=== PATIENT | male | born 1970 | race Two or more races ===

== ENCOUNTER 2019-05-19 17:14 | Emergency (ER) | payer SELFPAY ==
[~2019-05-19] VITALS: Ht 165.1 cm; Wt 68.0 kg
[2019-05-19] MEDS ORDERED: SODIUM CHLORIDE 0.9% 1,000 ML IV ONE (18:08)
[2019-05-19] MEDS ORDERED: LEVETIRACETAM 500MG PREMIX 100 ML IV ONE (18:15)
[2019-05-19 18:23] LABS: BASOPHILS % 0.4 % (0.0-2.0); EOSINOPHILS % 1.8 % (0.0-5.0); HEMOGLOBIN. 14.6 g/dL (14.0-18.0); MEAN CORPUSCULAR HEMOGLOBIN 31.9 pg (28.0-32.0); MEAN CORPUSCULAR VOLUME 94.2 fL (80.0-94.0); MEAN PLATELET VOLUME 9.9 fl (7.4-10.4); MONOCYTES % 7.3 % (2.0-8.0); NEUTROPHILS % 58.5 % (40.0-76.0); PLATELET 142 x1000/uL (130-400); RED BLOOD CELL COUNT 4.56 mill/uL (4.7-6.1); RED CELL DISTRIBUTION WIDTH 13.5 % (11.6-14.6)
[2019-05-19 18:28] LABS: CHLORIDE 108 mEq/L (98-107)
[2019-05-19 18:32] LABS: ETHANOL BLOOD < 10 mg/dL
[2019-05-19 18:36] LABS: CREATINE KINASE 151 IU/L (39-308)
[2019-05-19 18:37] LABS: CARBAMAZEPINE < 0.5 ug/mL (4-12); PHENOBARBITAL < 2.1 ug/mL (15.0-40.0); VALPROIC ACID < 3.0 ug/mL (50-100)
[2019-05-19 18:51] LABS: *AMPHETAMINES SCREEN URINE NEGATIVE (NEGATIVE); *BARBITURATES SCREEN URINE NEGATIVE (NEGATIVE); *BENZODIAZEPINES SCREEN URINE NEGATIVE (NEGATIVE); *COCAINE SCREEN URINE NEGATIVE (NEGATIVE); METHADONE URINE SCREEN NEGATIVE (NEGATIVE); OPIATES URINE SCREEN NEGATIVE (NEGATIVE)
[2019-05-19 18:52] LABS: CANNABINOID URINE SCREEN NEGATIVE (NEGATIVE); PHENCYCLIDINE URINE SCREEN NEGATIVE (NEGATIVE)
[2019-05-19 21:57] VITALS: BP 134/84
== END 2019-05-19 21:57 | disposition home or self-care (01) ==
LOC: EDSEX 17:14 → ER 17:14
DX: R56.9 Unspecified convulsions (principal); E86.0 Dehydration; S09.8XXA Other specified injuries of head, initial encounter; X58.XXXA Exposure to other specified factors, initial encounter; Y93.89 Activity, other specified; Y92.9 Unspecified place or not applicable
CPT/HCPCS: 36415; 70450; 80053; 80156; 80165; 80184; 80185; 80305; 80320; 82550; 82962; 83880; 84443; 84484; 85025; 93005; 96374; 99284; J1953; J7030; G0480

== ENCOUNTER 2019-10-15 09:54 | Emergency (ER) | payer SELFPAY ==
[~2019-10-15] VITALS: Ht 165.1 cm; Wt 68.0 kg
[2019-10-15] MEDS ORDERED: LEVETIRACETAM 1000MG/100ML 100 ML IV ONE (10:30)
[2019-10-15 11:02] VITALS: BP 144/67
[2019-10-15 11:56] LABS: CHLORIDE 107 mEq/L (98-107)
[2019-10-15 12:02] LABS: ETHANOL BLOOD < 10 mg/dL
[2019-10-15 12:03] LABS: BASOPHILS % 0.3 % (0.0-2.0); EOSINOPHILS % 0.2 % (0.0-5.0); HEMATOCRIT. 44.3 % (42.0-52.0); HEMOGLOBIN. 15.1 g/dL (14.0-18.0); LYMPHOCYTES % 8.2 % (20.0-50.0); MEAN CORPUSCULAR HEMOGLOBIN 32.1 pg (28.0-32.0); MEAN CORPUSCULAR VOLUME 94.3 fL (80.0-94.0); MEAN PLATELET VOLUME 10.6 fl (7.4-10.4); MONOCYTES % 4.1 % (2.0-8.0); NEUTROPHILS % 87.2 % (40.0-76.0); PLATELET 151 x1000/uL (130-400); RED CELL DISTRIBUTION WIDTH 12.9 % (11.6-14.6)
[2019-10-15 12:07] LABS: CLARITY URINE CLEAR (CLEAR); COLOR URINE YELLOW (YELLOW); KETONES URINE NEGATIVE (NEGATIVE); LEUKOCYTE ESTERASE URINE NEGATIVE (NEGATIVE); NITRITE URINE NEGATIVE (NEGATIVE); OCCULT BLOOD URINE NEGATIVE (NEGATIVE); PROTEIN URINE NEGATIVE (NEGATIVE); SPECIFIC GRAVITY URINE 1.011 (1.005-1.030); UROBILINOGEN URINE 0.2 E.U./dL (0.2-1.0)
[2019-10-15 12:40] LABS: *AMPHETAMINES SCREEN URINE NEGATIVE (NEGATIVE); *BARBITURATES SCREEN URINE NEGATIVE (NEGATIVE); *BENZODIAZEPINES SCREEN URINE NEGATIVE (NEGATIVE); *COCAINE SCREEN URINE NEGATIVE (NEGATIVE); METHADONE URINE SCREEN NEGATIVE (NEGATIVE); OPIATES URINE SCREEN NEGATIVE (NEGATIVE)
[2019-10-15 12:41] LABS: CANNABINOID URINE SCREEN NEGATIVE (NEGATIVE); PHENCYCLIDINE URINE SCREEN NEGATIVE (NEGATIVE)
== END 2019-10-15 13:03 | disposition home or self-care (01) ==
LOC: ER 10:15
DX: G40.909 Epilepsy, unspecified, not intractable, without status epilepticus (principal); Z86.73 Personal history of transient ischemic attack (TIA), and cerebral infarction without residual deficits
CPT/HCPCS: 36415; 80053; 80305; 80320; 81003; 85025; 96365; 99283; J1953; Z7610; G0480

== ENCOUNTER 2023-04-05 11:03 | Inpatient (IN) | payer MEDICAID ==
[~2023-04-05] VITALS: Ht 167.6 cm; Wt 74.8 kg
[~2023-04-05 11:03] MED LIST: KEPP500 PO; LAM25 PO
[2023-04-05] MEDS ORDERED: LEVETIRACETAM 1000MG PREMIX 100 ML IV ONE ×2 (11:45→16:00)
[2023-04-05] MEDS ORDERED: ACETAMINOPHEN 325MG TABLET PO ONE (11:45)
[2023-04-05 12:57] LABS: HEMATOCRIT. 40.1 % (42.0-52.0); HEMOGLOBIN. 13.8 g/dL (14.0-18.0); MEAN CORPUSCULAR HEMOGLOBIN 34.2 pg (28.0-32.0); MEAN CORPUSCULAR HGB CONC 34.3 g/dL (31.0-37.0); MEAN CORPUSCULAR VOLUME 99.6 fL (80.0-94.0); MEAN PLATELET VOLUME 9.2 fl (7.4-10.4); PLATELET 162 x1000/uL (130-400); RED BLOOD CELL COUNT 4.03 mill/uL (4.7-6.1); RED CELL DISTRIBUTION WIDTH 17.2 % (11.6-14.6); WHITE BLOOD COUNT 22.7 x1000/uL (4.5-11.0)
[2023-04-05 13:00] LABS: DIFFERENTIAL COMMENT 1
[2023-04-05 13:10] LABS: CHLORIDE 101 mEq/L (98-107); INDEX HEMOLYSI 1 (1-3); INDEX ICTERIC 2 (1-4); INDEX LIPEMIC 1 (1-3); POTASSIUM 3.5 mEq/L (3.5-5.1); SODIUM 134 mEq/L (136-145)
[2023-04-05 13:21] LABS: ALANINE AMINOTRANSFERASE 100 IU/L (13-61); ALBUMIN 3.1 g/dL (3.4-5.0); ASPARTATE AMINOTRANSFERASE 51 IU/L (15-37); BILIRUBIN TOTAL 1.4 mg/dL (0.1-1.0); CALCIUM 8.2 mg/dL (8.5-10.1); CARBON DIOXIDE 16 mEq/L (21-32); CREATINE KINASE 94 IU/L (39-308); CREATININE 0.7 mg/dL (0.6-1.3); ETHANOL BLOOD < 10 mg/dL (-10); GLUCOSE 102 mg/dL (70-105); UREA NITROGEN BLOOD 21 mg/dL (7-21)
[2023-04-05 13:29] LABS: ANISOCYTOSIS 1+; PLATELET ESTIMATE NORMAL
[2023-04-05 13:38] LABS: TROPONIN I HIGH SENSITIVITY 258 ng/L (<78)
[2023-04-05] MEDS ORDERED: SODIUM CHLORIDE 0.9% 1000ML BAG (SEPSIS BOLUS) IV ONE (15:00)
[2023-04-05] MEDS ORDERED: PIPERACILLIN/TAZOBACTAM 3.375GM/50ML PREMIX IV ONE (15:00)
[2023-04-05] MEDS ORDERED: PIPERACILLIN/TAZ 3.375G PREMIX 50 ML IV NR (15:00)
[2023-04-05] MEDS ORDERED: VANCOMYCIN 1G PREMIX 200 ML IV NR (15:00)
[2023-04-05] MEDS ORDERED: LORAZEPAM 2MG/ML CPJ IV ONE (15:15)
[2023-04-05 15:45] LABS: LACTIC ACID 12.8 mmol/L (0.4-2.0)
[2023-04-05] MEDS ORDERED: PIPERACILLIN/TAZ 3.375G PREMIX 50 ML IV SCH (16:00)
[2023-04-05] MEDS ORDERED: ONDANSETRON HCL 4MG/2ML INJ IV PRN (16:00)
[2023-04-05] MEDS ORDERED: IPRATROPIUM/ALBUTEROL 0.5-3(2.5)MG/3ML NEB NEB PRN (16:00)
[2023-04-05] MEDS ORDERED: CLONIDINE 0.1MG TABLET PO PRN (16:00)
[2023-04-05] MEDS ORDERED: GUAIFENESIN 200MG/10ML SUGAR FREE UDC PO PRN (16:00)
[2023-04-05] MEDS ORDERED: NITROGLYCERIN 0.4MG TABLET SL SL PRN (16:00)
[2023-04-05] MEDS ORDERED: ACETAMINOPHEN 325MG TABLET PO PRN ×2 (16:00)
[2023-04-05] MEDS ORDERED: SODIUM BICARBONATE 8.4% 1 MEQ/ML 50ML SYR IV ONE (16:00)
[2023-04-05] MEDS ORDERED: DOCUSATE SODIUM 100MG CAPSULE PO PRN (16:00)
[2023-04-05] MEDS ORDERED: MAGNESIUM/ALUMINUM HYDROXIDE/SIMETHICONE 30ML UDC PO PRN (16:00)
[2023-04-05] MEDS ORDERED: SODIUM CHLORIDE 0.9% 1000ML BAG (SEPSIS BOLUS) IV NR (16:30)
[2023-04-05] MEDS ORDERED: DEXAMETHASONE 10 MG/ML VIAL IV ONE (16:30)
[2023-04-05 17:04] LABS: T4 FREE 1.19 ng/dL (0.76-1.46); THYROID STIMULATING HORMONE 0.79 uIU/mL (0.36-3.74)
[2023-04-05 17:05] LABS: CLARITY URINE TURBID (CLEAR); COLOR URINE YELLOW (YELLOW); GLUCOSE URINE NEGATIVE (NEGATIVE); KETONES URINE NEGATIVE (NEGATIVE); LEUKOCYTE ESTERASE URINE NEGATIVE (NEGATIVE); NITRITE URINE NEGATIVE (NEGATIVE); OCCULT BLOOD URINE NEGATIVE (NEGATIVE); PH URINE 7.5 (4.5-8.0); PROTEIN URINE NEGATIVE (NEGATIVE); SPECIFIC GRAVITY URINE 1.012 (1.005-1.030)
[2023-04-05 17:12] LABS: SQUAMOUS EPITHELIAL CELL URINE NONE SEEN /lpf (RARE/1+); WBC URINE 0-2 /hpf (0-2); YEAST URINE NONE SEEN
[2023-04-05 17:24] LABS: *AMPHETAMINES SCREEN URINE NEGATIVE (NEGATIVE); *BARBITURATES SCREEN URINE NEGATIVE (NEGATIVE); *BENZODIAZEPINES SCREEN URINE NEGATIVE (NEGATIVE); *COCAINE SCREEN URINE NEGATIVE (NEGATIVE); CANNABINOID URINE SCREEN NEGATIVE (NEGATIVE); ECSTASY MDMA SCREEN URINE NEGATIVE (NEGATIVE); METHADONE URINE SCREEN NEGATIVE (NEGATIVE); OPIATES URINE SCREEN NEGATIVE (NEGATIVE); PHENCYCLIDINE URINE SCREEN NEGATIVE (NEGATIVE)
[2023-04-05 17:26] LABS: FOLIC ACID (FOLATE) SERUM 19.8 ng/mL (>5.38)
[2023-04-05 17:44] LABS: BACTERIA URINE 1+; RBC URINE 0-2 /hpf (0-2)
[2023-04-05] MEDS: ENOXAPARIN 40MG/0.4ML SYR SUBCUT SCH (17:57)
[2023-04-05] MEDS ORDERED: CEFTRIAXONE 2GM/50ML (ADDEASE) 50 ML IV ONE (18:15)
[2023-04-05] MEDS: ACYCLOVIR INJ 500 MG in DEXT 5% WATER 100 ML IV SCH (18:15)
[2023-04-05] MEDS ORDERED: CEFTRIAXONE 2 G in DEXTROSE 5% WATER 50 ML IV NR (18:30)
[2023-04-05 22:00] VITALS: BP 139/90; PULSE 87; RESP 13; TEMP 97.6
[2023-04-05] MEDS: ATORVASTATIN CALCIUM 40MG TABLET PO SCH (22:00)
[2023-04-05] MEDS: ASCORBIC ACID 500 MG TABLET PO SCH (22:00)
[2023-04-05 22:14] VITALS: BP 139/90; PULSE 86; RESP 16; TEMP 97.6
[2023-04-06] VITALS (11 sets, daily range): BP systolic 95–154; BP diastolic 63–99; PULSE 78–123; RESP 13–25; TEMP 97.2–98.4
[2023-04-06] MEDS: VANCOMYCIN 750MG PREMIX 150 ML IV SCH ×4 (00:09→21:31)
[2023-04-06] MEDS: PIPERACILLIN/TAZOBACTAM 3.375G in DEXT 5% WATER 50ML IV SCH ×4 (00:09→21:31)
[2023-04-06 01:12] LABS: CREATINE KINASE MB FRACTION 6.6 ng/mL (0.5-3.6)
[2023-04-06] MEDS: ACYCLOVIR INJ 500 MG in DEXT 5% WATER 100 ML IV SCH ×2 (02:25→08:30)
[2023-04-06] MEDS ORDERED: DEXA1TAB PO (02:33)
[2023-04-06] MEDS ORDERED: VALA500T55 PO (02:36)
[2023-04-06] MEDS ORDERED: FURO-152 PO (02:36)
[2023-04-06] MEDS ORDERED: LACO200T2 PO (02:36)
[2023-04-06] MEDS ORDERED: OXYB5TAB17 PO (02:36)
[2023-04-06 07:03] LABS: BASOPHILS % 0.1 % (0.0-2.0); DIFFERENTIAL COMMENT 0; HEMATOCRIT. 37.3 % (42.0-52.0); HEMOGLOBIN. 13.1 g/dL (14.0-18.0); LYMPHOCYTES % 8.8 % (20.0-50.0); MEAN CORPUSCULAR HEMOGLOBIN 34.5 pg (28.0-32.0); MEAN CORPUSCULAR HGB CONC 35.1 g/dL (31.0-37.0); MEAN CORPUSCULAR VOLUME 98.3 fL (80.0-94.0); MEAN PLATELET VOLUME 9.5 fl (7.4-10.4); MONOCYTES % 3.1 % (2.0-8.0); PLATELET 144 x1000/uL (130-400); RED BLOOD CELL COUNT 3.79 mill/uL (4.7-6.1); RED CELL DISTRIBUTION WIDTH 17.1 % (11.6-14.6); WHITE BLOOD COUNT 11.3 x1000/uL (4.5-11.0)
[2023-04-06 08:01] LABS: CHLORIDE 106 mEq/L (98-107); INDEX HEMOLYSI 1 (1-3); INDEX ICTERIC 2 (1-4); INDEX LIPEMIC 1 (1-3); POTASSIUM 3.4 mEq/L (3.5-5.1); SODIUM 137 mEq/L (136-145)
[2023-04-06 08:16] LABS: ALANINE AMINOTRANSFERASE 79 IU/L (13-61); ALBUMIN 2.8 g/dL (3.4-5.0); ASPARTATE AMINOTRANSFERASE 40 IU/L (15-37); BILIRUBIN TOTAL 1.4 mg/dL (0.1-1.0); CARBON DIOXIDE 21 mEq/L (21-32); CREATINE KINASE 61 IU/L (39-308); CREATININE 0.4 mg/dL (0.6-1.3); GLUCOSE 86 mg/dL (70-105); PROTEIN TOTAL 5.7 g/dL (6.0-8.3); TRIGLYCERIDE 301 mg/dL (0-150); UREA NITROGEN BLOOD 16 mg/dL (7-21)
[2023-04-06] MEDS ORDERED: PANTOPRAZOLE SODIUM 40 MG/VIAL IV SCH (09:00)
[2023-04-06] MEDS ORDERED: LEVETIRACETAM 500MG PREMIX 100 ML IV SCH (09:00)
[2023-04-06] MEDS: LEVETIRACETAM 500MG PREMIX 100 ML IV SCH ×2 (09:44→20:19)
[2023-04-06] MEDS: ZINC SULFATE 220 MG ( 50 ) CAPSULE PO SCH (09:45)
[2023-04-06] MEDS: ASCORBIC ACID 500 MG TABLET PO SCH ×2 (09:45→20:19)
[2023-04-06 11:00] LABS: *AMPHETAMINES SCREEN URINE NEGATIVE (NEGATIVE); *BARBITURATES SCREEN URINE NEGATIVE (NEGATIVE); *BENZODIAZEPINES SCREEN URINE NEGATIVE (NEGATIVE); *COCAINE SCREEN URINE NEGATIVE (NEGATIVE); CANNABINOID URINE SCREEN NEGATIVE (NEGATIVE); ECSTASY MDMA SCREEN URINE NEGATIVE (NEGATIVE); METHADONE URINE SCREEN NEGATIVE (NEGATIVE); OPIATES URINE SCREEN NEGATIVE (NEGATIVE); PHENCYCLIDINE URINE SCREEN NEGATIVE (NEGATIVE)
[2023-04-06] MEDS: CLOPIDOGREL 75MG TABLET PO SCH (12:31)
[2023-04-06] MEDS ORDERED: ASPIRIN 81MG TABLET PO SCH (12:45)
[2023-04-06] MEDS: ENOXAPARIN 40MG/0.4ML SYR SUBCUT SCH (17:09)
[2023-04-06] MEDS: ATORVASTATIN CALCIUM 40MG TABLET PO SCH (20:19)
[2023-04-06] MEDS: KETOROLAC 15MG/ML VIAL IV PRN (20:55)
[2023-04-07] VITALS (10 sets, daily range): BP systolic 118–147; BP diastolic 76–112; PULSE 99–124; RESP 14–24; TEMP 98–98.5
[2023-04-07] MEDS: VANCOMYCIN 750MG PREMIX 150 ML IV SCH ×2 (05:01→13:57)
[2023-04-07] MEDS: PIPERACILLIN/TAZOBACTAM 3.375G in DEXT 5% WATER 50ML IV SCH ×2 (05:01→15:03)
[2023-04-07] MEDS: LEVETIRACETAM 500MG TABLET PO SCH ×2 (09:34→20:37)
[2023-04-07] MEDS: CLOPIDOGREL 75MG TABLET PO SCH (09:34)
[2023-04-07] MEDS: ZINC SULFATE 220 MG ( 50 ) CAPSULE PO SCH (09:35)
[2023-04-07] MEDS: FAMOTIDINE 20MG TABLET PO SCH ×2 (09:35→20:36)
[2023-04-07] MEDS: ASCORBIC ACID 500 MG TABLET PO SCH ×2 (09:39→20:37)
[2023-04-07] MEDS ORDERED: IOHEXOL-350 100 ML BOTTLE ONE (10:55)
[2023-04-07] MEDS ORDERED: LACTATED RINGERS 1,000 ML IV ONE (11:45)
[2023-04-07 12:26] LABS: BASOPHILS % 0.1 % (0.0-2.0); EOSINOPHILS % 0.1 % (0.0-5.0); HEMATOCRIT. 38.8 % (42.0-52.0); HEMOGLOBIN. 13.6 g/dL (14.0-18.0); LYMPHOCYTES % 21.2 % (20.0-50.0); MEAN CORPUSCULAR HEMOGLOBIN 34.6 pg (28.0-32.0); MEAN CORPUSCULAR HGB CONC 34.9 g/dL (31.0-37.0); MEAN CORPUSCULAR VOLUME 99.1 fL (80.0-94.0); MONOCYTES % 3.2 % (2.0-8.0); NEUTROPHILS % 75.4 % (40.0-76.0); PLATELET 136 x1000/uL (130-400); RED BLOOD CELL COUNT 3.92 mill/uL (4.7-6.1); RED CELL DISTRIBUTION WIDTH 17.1 % (11.6-14.6); WHITE BLOOD COUNT 8.3 x1000/uL (4.5-11.0)
[2023-04-07 12:44] LABS: ALBUMIN 2.6 g/dL (3.4-5.0); CALCIUM 7.9 mg/dL (8.5-10.1); CARBON DIOXIDE 20 mEq/L (21-32); CHLORIDE 107 mEq/L (98-107); GLUCOSE 125 mg/dL (70-105); INDEX HEMOLYSI 1 (1-3); INDEX ICTERIC 2 (1-4); INDEX LIPEMIC 1 (1-3); SODIUM 134 mEq/L (136-145); UREA NITROGEN BLOOD 21 mg/dL (7-21)
[2023-04-07 12:50] LABS: ALANINE AMINOTRANSFERASE 66 IU/L (13-61); ASPARTATE AMINOTRANSFERASE 25 IU/L (15-37); BILIRUBIN TOTAL 1.5 mg/dL (0.1-1.0); CREATININE 0.6 mg/dL (0.6-1.3); PROTEIN TOTAL 5.7 g/dL (6.0-8.3)
[2023-04-07] MEDS: ENOXAPARIN 40MG/0.4ML SYR SUBCUT SCH (20:22)
[2023-04-07] MEDS: METOPROLOL TARTRATE 25MG TABLET PO SCH ×2 (20:23→23:06)
[2023-04-07] MEDS: ZOLPIDEM TARTRATE 5MG TABLET PO PRN (20:36)
[2023-04-07] MEDS: LORAZEPAM 2MG/ML CPJ IV PRN (20:36)
[2023-04-07] MEDS: KETOROLAC 15MG/ML VIAL IV PRN (20:36)
[2023-04-07] MEDS: ATORVASTATIN CALCIUM 40MG TABLET PO SCH (20:37)
[2023-04-08] VITALS (7 sets, daily range): BP systolic 102–152; BP diastolic 71–94; PULSE 69–96; RESP 13–21; TEMP 97–98.6
[2023-04-08] MEDS: KETOROLAC 15MG/ML VIAL IV PRN ×2 (02:19→20:41)
[2023-04-08] MEDS: LORAZEPAM 2MG/ML CPJ IV PRN ×2 (02:19→19:58)
[2023-04-08] MEDS: LEVETIRACETAM 500MG TABLET PO SCH ×2 (09:22→20:00)
[2023-04-08] MEDS: CLOPIDOGREL 75MG TABLET PO SCH (09:22)
[2023-04-08] MEDS: ZINC SULFATE 220 MG ( 50 ) CAPSULE PO SCH (09:22)
[2023-04-08] MEDS: FAMOTIDINE 20MG TABLET PO SCH ×2 (09:22→20:01)
[2023-04-08] MEDS: METOPROLOL TARTRATE 25MG TABLET PO SCH (09:23)
[2023-04-08] MEDS: ASCORBIC ACID 500 MG TABLET PO SCH ×2 (09:23→20:01)
[2023-04-08] MEDS: APIXABAN 5 MG TABLET PO SCH ×2 (13:19→20:01)
[2023-04-08] MEDS: CYANOCOBALAMIN 1000MCG/ML VIAL IM SCH (17:04)
[2023-04-08] MEDS: ATORVASTATIN CALCIUM 40MG TABLET PO SCH (20:01)
[2023-04-08] MEDS: ZOLPIDEM TARTRATE 5MG TABLET PO PRN (20:41)
[2023-04-09] VITALS: BP 141/102; PULSE 72; RESP 24; TEMP 97.3
[2023-04-09] MEDS: LORAZEPAM 2MG/ML CPJ IV PRN ×2 (00:22→21:48)
[2023-04-09 04:00] VITALS: BP 145/97; PULSE 73; RESP 20; TEMP 96.6
[2023-04-09 07:07] LABS: HEMATOCRIT. 39.4 % (42.0-52.0); HEMOGLOBIN. 13.3 g/dL (14.0-18.0); MEAN CORPUSCULAR HEMOGLOBIN 34.4 pg (28.0-32.0); MEAN CORPUSCULAR HGB CONC 33.7 g/dL (31.0-37.0); MEAN CORPUSCULAR VOLUME 102.2 fL (80.0-94.0); MEAN PLATELET VOLUME 9.2 fl (7.4-10.4); PLATELET 103 x1000/uL (130-400); RED BLOOD CELL COUNT 3.86 mill/uL (4.7-6.1); RED CELL DISTRIBUTION WIDTH 16.8 % (11.6-14.6); WHITE BLOOD COUNT 5.4 x1000/uL (4.5-11.0)
[2023-04-09 07:20] LABS: DIFFERENTIAL COMMENT 1
[2023-04-09 07:45] LABS: CHLORIDE 112 mEq/L (98-107); INDEX HEMOLYSI 4 (1-3); INDEX ICTERIC 1 (1-4); INDEX LIPEMIC 1 (1-3); SODIUM 137 mEq/L (136-145)
[2023-04-09 07:53] LABS: ALANINE AMINOTRANSFERASE 64 IU/L (13-61); ALBUMIN 2.6 g/dL (3.4-5.0); ASPARTATE AMINOTRANSFERASE 39 IU/L (15-37); BILIRUBIN TOTAL 1.3 mg/dL (0.1-1.0); CALCIUM 8.1 mg/dL (8.5-10.1); CARBON DIOXIDE 18 mEq/L (21-32); CREATININE 0.5 mg/dL (0.6-1.3); GLUCOSE 73 mg/dL (70-105); PROTEIN TOTAL 5.6 g/dL (6.0-8.3); UREA NITROGEN BLOOD 16 mg/dL (7-21)
[2023-04-09 08:00] VITALS: BP 133/99; PULSE 85; RESP 16; TEMP 97.3
[2023-04-09] MEDS: CYANOCOBALAMIN 1000MCG/ML VIAL IM SCH (08:18)
[2023-04-09] MEDS: ZINC SULFATE 220 MG ( 50 ) CAPSULE PO SCH (08:19)
[2023-04-09] MEDS: FAMOTIDINE 20MG TABLET PO SCH ×2 (08:19→21:47)
[2023-04-09] MEDS: CLOPIDOGREL 75MG TABLET PO SCH (08:19)
[2023-04-09] MEDS: ASCORBIC ACID 500 MG TABLET PO SCH ×2 (08:19→21:47)
[2023-04-09] MEDS: APIXABAN 5 MG TABLET PO SCH ×2 (08:19→17:49)
[2023-04-09] MEDS: LEVETIRACETAM 500MG TABLET PO SCH ×2 (08:19→21:47)
[2023-04-09 09:07] LABS: LEVETIRACETAM / KEPPRA 25.9 ug/mL (10.0-40.0)
[2023-04-09 10:08] LABS: LAMOTIGINE (LAMICTAL) <1.0 ug/mL (2.0-20.0)
[2023-04-09 12:00] VITALS: BP 118/90; PULSE 116; RESP 18; TEMP 97.5
[2023-04-09] MEDS: KETOROLAC 15MG/ML VIAL IV PRN (12:51)
[2023-04-09 13:25] LABS: PLATELET ESTIMATE NORMAL
[2023-04-09 16:00] VITALS: BP 115/92; PULSE 105; RESP 18; TEMP 97.4
[2023-04-09 20:00] VITALS: BP 124/85; PULSE 119; RESP 14; TEMP 98.3
[2023-04-09] MEDS: ATORVASTATIN CALCIUM 40MG TABLET PO SCH (21:47)
[2023-04-10] VITALS (7 sets, daily range): BP systolic 122–133; BP diastolic 69–98; PULSE 82–104; RESP 16–21; TEMP 97.6–98.6
[2023-04-10] MEDS: KETOROLAC 15MG/ML VIAL IV PRN (01:00)
[2023-04-10] MEDS: CLOPIDOGREL 75MG TABLET PO SCH (08:50)
[2023-04-10] MEDS: LEVETIRACETAM 500MG TABLET PO SCH ×2 (08:50→21:59)
[2023-04-10] MEDS: ASCORBIC ACID 500 MG TABLET PO SCH ×2 (08:51→21:57)
[2023-04-10] MEDS: ZINC SULFATE 220 MG ( 50 ) CAPSULE PO SCH (08:51)
[2023-04-10] MEDS: CYANOCOBALAMIN 1000MCG/ML VIAL IM SCH (08:51)
[2023-04-10] MEDS: APIXABAN 5 MG TABLET PO SCH ×2 (08:51→17:52)
[2023-04-10] MEDS: FAMOTIDINE 20MG TABLET PO SCH ×2 (08:51→21:57)
[2023-04-10] MEDS ORDERED: CLOP-31 PO (15:50)
[2023-04-10] MEDS ORDERED: LIP40 PO (15:50)
[2023-04-10] MEDS ORDERED: KEPP500 PO (15:50)
[2023-04-10] MEDS ORDERED: APIX5TAB PO (15:50)
[2023-04-10] MEDS: ATORVASTATIN CALCIUM 40MG TABLET PO SCH (21:58)
[2023-04-11] VITALS: BP 123/84; PULSE 87; RESP 15; TEMP 98.9
[2023-04-11 04:00] VITALS: BP 126/94; PULSE 96; RESP 12; TEMP 98.9
[2023-04-11 08:00] VITALS: BP 138/107; PULSE 96; RESP 20; TEMP 97.1
[2023-04-11] MEDS: CLOPIDOGREL 75MG TABLET PO SCH (09:35)
[2023-04-11] MEDS: ASCORBIC ACID 500 MG TABLET PO SCH ×2 (09:35→21:15)
[2023-04-11] MEDS: ZINC SULFATE 220 MG ( 50 ) CAPSULE PO SCH (09:35)
[2023-04-11] MEDS: LEVETIRACETAM 500MG TABLET PO SCH ×2 (09:35→21:15)
[2023-04-11] MEDS: CYANOCOBALAMIN 1000MCG/ML VIAL IM SCH (09:36)
[2023-04-11] MEDS: APIXABAN 5 MG TABLET PO SCH ×2 (09:36→17:50)
[2023-04-11] MEDS: FAMOTIDINE 20MG TABLET PO SCH ×2 (09:36→21:15)
[2023-04-11] MEDS: KETOROLAC 15MG/ML VIAL IV PRN (09:43)
[2023-04-11 12:00] VITALS: BP 135/98; PULSE 92; RESP 17; TEMP 98
[2023-04-11 16:00] VITALS: BP 124/79; PULSE 100; RESP 18; TEMP 97.9
[2023-04-11 20:18] VITALS: BP 132/97; PULSE 96; RESP 18; TEMP 97.7
[2023-04-11] MEDS: ATORVASTATIN CALCIUM 40MG TABLET PO SCH (21:15)
[2023-04-12] VITALS (7 sets, daily range): BP systolic 110–137; BP diastolic 71–93; PULSE 96–115; RESP 14–19; TEMP 96.9–98.8
[2023-04-12] MEDS: ZINC SULFATE 220 MG ( 50 ) CAPSULE PO SCH (08:30)
[2023-04-12] MEDS: CLOPIDOGREL 75MG TABLET PO SCH (08:30)
[2023-04-12] MEDS: LEVETIRACETAM 500MG TABLET PO SCH ×2 (08:30→22:19)
[2023-04-12] MEDS: ASCORBIC ACID 500 MG TABLET PO SCH ×2 (08:30→22:19)
[2023-04-12] MEDS: APIXABAN 5 MG TABLET PO SCH ×2 (08:30→17:15)
[2023-04-12] MEDS: CYANOCOBALAMIN 1000MCG/ML VIAL IM SCH (08:30)
[2023-04-12] MEDS: FAMOTIDINE 20MG TABLET PO SCH ×2 (08:30→22:19)
[2023-04-12] MEDS: CALAMINE LOTION 120ML TOP SCH ×2 (14:24→22:20)
[2023-04-12] MEDS: ATORVASTATIN CALCIUM 40MG TABLET PO SCH (22:19)
[2023-04-13] VITALS: BP 122/80; PULSE 103; RESP 18; TEMP 97.8
[2023-04-13 04:00] VITALS: BP 114/75; PULSE 103; RESP 18; TEMP 98.5
[2023-04-13 08:00] VITALS: BP 124/82; PULSE 99; RESP 18; TEMP 99.6
[2023-04-13] MEDS: CALAMINE LOTION 120ML TOP SCH ×3 (08:00→22:00)
[2023-04-13] MEDS: CLOPIDOGREL 75MG TABLET PO SCH (08:16)
[2023-04-13] MEDS: FAMOTIDINE 20MG TABLET PO SCH ×2 (08:16→20:36)
[2023-04-13] MEDS: APIXABAN 5 MG TABLET PO SCH ×2 (08:16→17:37)
[2023-04-13] MEDS: ASCORBIC ACID 500 MG TABLET PO SCH ×2 (08:16→20:36)
[2023-04-13] MEDS: CYANOCOBALAMIN 1000MCG/ML VIAL IM SCH (08:16)
[2023-04-13] MEDS: LEVETIRACETAM 500MG TABLET PO SCH ×2 (08:16→20:36)
[2023-04-13] MEDS: ZINC SULFATE 220 MG ( 50 ) CAPSULE PO SCH (08:16)
[2023-04-13 12:00] VITALS: BP 124/90; PULSE 107; RESP 18; TEMP 98.2
[2023-04-13 16:00] VITALS: BP 126/95; PULSE 119; RESP 18; TEMP 97.8
[2023-04-13 20:00] VITALS: BP 145/101; PULSE 116; RESP 20; TEMP 97.8
[2023-04-13] MEDS: ATORVASTATIN CALCIUM 40MG TABLET PO SCH (20:36)
[2023-04-14 00:30] VITALS: BP 134/69; PULSE 106; RESP 20; TEMP 98.2
[2023-04-14 04:29] VITALS: BP 136/82; PULSE 104; RESP 20; TEMP 97.7
[2023-04-14] MEDS: CALAMINE LOTION 120ML TOP SCH ×4 (06:00→21:28)
[2023-04-14 08:00] VITALS: BP 129/102; PULSE 89; RESP 18; TEMP 96.3
[2023-04-14] MEDS: CYANOCOBALAMIN 1000MCG/ML VIAL IM SCH (08:14)
[2023-04-14] MEDS: APIXABAN 5 MG TABLET PO SCH ×2 (08:14→18:29)
[2023-04-14] MEDS: CLOPIDOGREL 75MG TABLET PO SCH (08:14)
[2023-04-14] MEDS: FAMOTIDINE 20MG TABLET PO SCH ×2 (08:14→21:23)
[2023-04-14] MEDS: ASCORBIC ACID 500 MG TABLET PO SCH ×2 (08:14→21:23)
[2023-04-14] MEDS: ZINC SULFATE 220 MG ( 50 ) CAPSULE PO SCH (08:14)
[2023-04-14] MEDS: LEVETIRACETAM 500MG TABLET PO SCH ×2 (08:14→21:23)
[2023-04-14 12:00] VITALS: BP 140/99; PULSE 100; RESP 18; TEMP 97.7
[2023-04-14] MEDS ORDERED: ERGOCALCIFEROL 50000UNITS CAPSULE PO SCH (15:00)
[2023-04-14 16:00] VITALS: BP 135/94; PULSE 111; RESP 19; TEMP 97.7
[2023-04-14 20:00] VITALS: BP 121/86; PULSE 97; RESP 18; TEMP 97.9
[2023-04-14] MEDS: ATORVASTATIN CALCIUM 40MG TABLET PO SCH (21:23)
[2023-04-15] VITALS: BP 135/98; PULSE 95; RESP 18; TEMP 97.7
[2023-04-15 04:00] VITALS: BP 140/96; PULSE 95; RESP 18; TEMP 97.7
[2023-04-15] MEDS: CALAMINE LOTION 120ML TOP SCH ×3 (06:00→21:45)
[2023-04-15] MEDS: APIXABAN 5 MG TABLET PO SCH ×2 (09:39→17:04)
[2023-04-15] MEDS: LEVETIRACETAM 500MG TABLET PO SCH ×2 (09:39→21:44)
[2023-04-15] MEDS: CLOPIDOGREL 75MG TABLET PO SCH (09:39)
[2023-04-15] MEDS: ZINC SULFATE 220 MG ( 50 ) CAPSULE PO SCH (09:39)
[2023-04-15] MEDS: FAMOTIDINE 20MG TABLET PO SCH ×2 (09:39→21:44)
[2023-04-15] MEDS: ASCORBIC ACID 500 MG TABLET PO SCH ×2 (09:39→21:44)
[2023-04-15 12:00] VITALS: BP 118/80; PULSE 107; RESP 20; TEMP 97.9
[2023-04-15] MEDS: LIDOCAINE 5% PATCH TOP SCH (13:00)
[2023-04-15] MEDS: DICLOFENAC SODIUM 1% GEL 50GM TOP SCH ×3 (14:00→21:45)
[2023-04-15 16:00] VITALS: BP 130/95; PULSE 119; RESP 20; TEMP 97.2
[2023-04-15] MEDS: ATORVASTATIN CALCIUM 40MG TABLET PO SCH (21:44)
[2023-04-16 04:00] VITALS: BP 151/84; PULSE 104; RESP 19; TEMP 97.3
[2023-04-16] MEDS: CALAMINE LOTION 120ML TOP SCH ×3 (06:00→21:35)
[2023-04-16 07:27] LABS: HEMATOCRIT 34.3 % (42.0-52.0); HEMOGLOBIN 11.7 g/dL (14.0-18.0); MEAN CORPUSCULAR HGB CONC 34.2 g/dL (31.0-37.0); MEAN CORPUSCULAR VOLUME 102.4 fL (80.0-94.0); PLATELET 205 x1000/uL (130-400); RED BLOOD CELL COUNT 3.35 mill/uL (4.7-6.1); RED CELL DISTRIBUTION WIDTH 16.7 % (11.6-14.6); WHITE BLOOD COUNT 4.5 x1000/uL (4.5-11.0)
[2023-04-16 07:49] LABS: CALCIUM 7.9 mg/dL (8.5-10.1); CARBON DIOXIDE 28 mEq/L (21-32); CHLORIDE 105 mEq/L (98-107); INDEX HEMOLYSI 1 (1-3); INDEX ICTERIC 1 (1-4); INDEX LIPEMIC 1 (1-3); POTASSIUM 3.5 mEq/L (3.5-5.1); SODIUM 139 mEq/L (136-145)
[2023-04-16 07:53] LABS: CREATININE 0.7 mg/dL (0.6-1.3); GLUCOSE 106 mg/dL (70-105); PHOSPHORUS 2.6 mg/dL (2.5-4.9); UREA NITROGEN BLOOD 11 mg/dL (7-21)
[2023-04-16 08:00] VITALS: BP 115/81; PULSE 109; RESP 19; TEMP 98.1
[2023-04-16] MEDS: LEVETIRACETAM 500MG TABLET PO SCH ×2 (08:47→21:34)
[2023-04-16] MEDS: FAMOTIDINE 20MG TABLET PO SCH ×2 (08:47→21:34)
[2023-04-16] MEDS: ASCORBIC ACID 500 MG TABLET PO SCH ×2 (08:47→21:34)
[2023-04-16] MEDS: APIXABAN 5 MG TABLET PO SCH ×2 (08:47→17:24)
[2023-04-16] MEDS: CLOPIDOGREL 75MG TABLET PO SCH (08:47)
[2023-04-16] MEDS: ZINC SULFATE 220 MG ( 50 ) CAPSULE PO SCH (08:47)
[2023-04-16] MEDS: DICLOFENAC SODIUM 1% GEL 50GM TOP SCH ×4 (08:48→21:00)
[2023-04-16] MEDS: LIDOCAINE 5% PATCH TOP SCH (08:48)
[2023-04-16 12:00] VITALS: BP 121/89; PULSE 91; RESP 19; TEMP 97.9
[2023-04-16 16:00] VITALS: BP 137/96; PULSE 96; RESP 20; TEMP 97.9
[2023-04-16 20:00] VITALS: BP 155/89; PULSE 99; RESP 19; TEMP 98.1
[2023-04-16] MEDS: ATORVASTATIN CALCIUM 40MG TABLET PO SCH (21:34)
[2023-04-17] VITALS: BP 141/92; PULSE 105; RESP 19; TEMP 100
[2023-04-17 04:00] VITALS: BP 130/90; PULSE 97; RESP 18; TEMP 98.1
[2023-04-17] MEDS: CALAMINE LOTION 120ML TOP SCH ×2 (06:00→12:52)
[2023-04-17 08:00] VITALS: BP 126/90; PULSE 98; RESP 18; TEMP 96.7
[2023-04-17] MEDS: LIDOCAINE 5% PATCH TOP SCH (08:46)
[2023-04-17] MEDS: ASCORBIC ACID 500 MG TABLET PO SCH (08:47)
[2023-04-17] MEDS: LEVETIRACETAM 500MG TABLET PO SCH (08:47)
[2023-04-17] MEDS: APIXABAN 5 MG TABLET PO SCH ×2 (08:47→16:56)
[2023-04-17] MEDS: FAMOTIDINE 20MG TABLET PO SCH (08:47)
[2023-04-17] MEDS: CLOPIDOGREL 75MG TABLET PO SCH (08:47)
[2023-04-17] MEDS: ZINC SULFATE 220 MG ( 50 ) CAPSULE PO SCH (08:47)
[2023-04-17] MEDS: DICLOFENAC SODIUM 1% GEL 50GM TOP SCH ×3 (08:48→16:56)
[2023-04-17 12:00] VITALS: BP 127/93; PULSE 99; RESP 22; TEMP 97.5
[2023-04-17 16:00] VITALS: BP 128/90; PULSE 103; RESP 20; TEMP 98.6
[2023-04-17 17:38] VITALS: BP 128/90; PULSE 103; TEMP 98.6; O2SAT 98
== END 2023-04-17 21:25 | disposition home or self-care (01) | DRG 720 ==
LOC: ER 11:05 → EDBEDREQTM 15:47 → EDBEDREQ 15:47 → 5EST 18:24 → EDBEDREQTM 18:31 → EDBEDREQ 18:31 → EDBEDREQSVC 18:34 → ENRESERV 20:05 → 3WST 04-07 17:50 → 6EST 04-12 06:14
PROVIDERS: ADMIT Internal Medicine; ATTEND Internal Medicine
DX: A41.9 Sepsis, unspecified organism (principal); I63.9 Cerebral infarction, unspecified; G82.50 Quadriplegia, unspecified; I21.A1 Myocardial infarction type 2; E44.1 Mild protein-calorie malnutrition; R13.0 Aphagia; I48.0 Paroxysmal atrial fibrillation; R47.01 Aphasia; G40.909 Epilepsy, unspecified, not intractable, without status epilepticus; D64.9 Anemia, unspecified; E78.5 Hyperlipidemia, unspecified; R74.01 Elevation of levels of liver transaminase levels; Z68.26 Body mass index [BMI] 26.0-26.9, adult; R77.8 Other specified abnormalities of plasma proteins; I50.22 Chronic systolic (congestive) heart failure; E78.00 Pure hypercholesterolemia, unspecified; G93.89 Other specified disorders of brain; R47.1 Dysarthria and anarthria; R13.10 Dysphagia, unspecified; E55.9 Vitamin D deficiency, unspecified; E87.1 Hypo-osmolality and hyponatremia; Z78.1 Physical restraint status; Z79.01 Long term (current) use of anticoagulants; Z82.49 Family history of ischemic heart disease and other diseases of the circulatory system; Z83.3 Family history of diabetes mellitus; Z91.A4 Caregiver's other noncompliance with patient's medication regimen; Z92.3 Personal history of irradiation
CPT/HCPCS: 36415; 70496; 70498; 70551; 70552; 71045; 72148; 73502; 74176; 80048; 80053; 80061; 80202; 80305; 80320; 81003; 82306; 82542; 82550; 82553; 82607; 82746; 82962; 83036; 83540; 83550; 83605; 83735; 84100; 84145; 84439; 84443; 84478; 84484; 85025; 85027; 92523; 92610; 93005; 93306; 93970; 97110; 97116; 97162; 97166; 97530; 99291; C1893; J0133; J0696; J1100; J1650; J1885; J1953; J2060; J2543; J3370; J3420; J3490; J7030; J7060; Q9967; G0480